=== PATIENT | male | born 1955 | race Two or more races ===

== ENCOUNTER 2017-12-31 10:49 | Outpatient (CLI) | payer OTHER ==
[~2017-12-31 10:49] MED LIST: COZAAR50 MG
== END 2017-12-31 10:55 | disposition home or self-care (01) ==
LOC: RAD 10:49
DX: R07.0 Pain in throat (principal); R51 Headache; J30.89 Other allergic rhinitis

== ENCOUNTER 2018-06-29 03:07 | Emergency (ER) | payer OTHER ==
[~2018-06-29] VITALS: Ht 170.2 cm; Wt 104.3 kg
== END 2018-06-29 12:47 | disposition home or self-care (01) ==
LOC: ER 03:07
DX: N20.1 Calculus of ureter (principal); N20.0 Calculus of kidney; K57.90 Diverticulosis of intestine, part unspecified, without perforation or abscess without bleeding

== ENCOUNTER 2018-07-02 01:15 | Emergency (ER) | payer OTHER ==
[~2018-07-02] VITALS: Ht 170.2 cm; Wt 104.3 kg
== END 2018-07-02 08:26 | disposition home or self-care (01) ==
LOC: ER 01:15
DX: N20.0 Calculus of kidney (principal)

== ENCOUNTER 2018-12-23 10:49 | Outpatient (CLI) | payer OTHER | END 2018-12-23 11:00 | disposition home or self-care (01) | LOC: NUCLEAR 10:49 | DX: G62.9 Polyneuropathy, unspecified (principal); I10 Essential (primary) hypertension; E78.5 Hyperlipidemia, unspecified; I87.2 Venous insufficiency (chronic) (peripheral); I73.9 Peripheral vascular disease, unspecified ==

== ENCOUNTER 2018-12-24 09:59 | Outpatient (CLI) | payer OTHER | END 2018-12-24 10:06 | disposition home or self-care (01) | LOC: NUCLEAR 09:59 | DX: G62.9 Polyneuropathy, unspecified (principal); I10 Essential (primary) hypertension; E78.5 Hyperlipidemia, unspecified; I73.9 Peripheral vascular disease, unspecified ==

== ENCOUNTER → 2019-10-16 10:51 | Outpatient (CLI) | payer OTHER | END | disposition home or self-care (01) | LOC: LAB 10:51 | PROVIDERS: ATTEND Urology | DX: N40.0 Benign prostatic hyperplasia without lower urinary tract symptoms (principal); N20.0 Calculus of kidney ==

== ENCOUNTER 2019-10-18 11:36 | Outpatient (CLI) | payer OTHER | END 2019-10-18 12:08 | disposition home or self-care (01) | LOC: LAB 11:36 | PROVIDERS: ATTEND Urology | DX: N40.0 Benign prostatic hyperplasia without lower urinary tract symptoms (principal); N20.0 Calculus of kidney ==

== ENCOUNTER 2019-10-20 14:06 | Outpatient (CLI) | payer OTHER | END 2019-10-20 14:24 | disposition home or self-care (01) | LOC: LAB 14:06 | PROVIDERS: ATTEND Urology | DX: N40.0 Benign prostatic hyperplasia without lower urinary tract symptoms (principal); N20.0 Calculus of kidney ==

== ENCOUNTER 2019-11-02 07:15 | Inpatient (IN) | payer OTHER ==
[~2019-11-02] VITALS: Ht 170.2 cm; Wt 97.5 kg
[2019-11-02] MEDS ORDERED: VYTORIN 10-401 EACH PO (09:55)
== END 2019-11-12 20:00 | DRG 470 ==
LOC: SURH 11-09 06:09 → O/R 11-09 06:09 → SURH 11-09 07:15
PROVIDERS: ADMIT Orthopaedic Surgery; ATTEND Orthopaedic Surgery
PROC: 0SRD0J9 Replacement of Left Knee Joint with Synthetic Substitute, Cemented, Open Approach (ICD-10-PCS; principal; 2019-11-09 13:30)
DX: M17.12 Unilateral primary osteoarthritis, left knee (principal); I10 Essential (primary) hypertension

== ENCOUNTER 2020-12-07 09:00 | Outpatient (CLI) | payer OTHER ==
[~2020-12-07 09:00] MED LIST changes: +VYTORIN 10-401 EACH PO
== END 2020-12-07 09:33 | disposition home or self-care (01) ==
LOC: TOM 09:00
PROVIDERS: ATTEND General Practice
DX: E04.2 Nontoxic multinodular goiter (principal); Q61.01 Congenital single renal cyst; D72.818 Other decreased white blood cell count; N22 Calculus of urinary tract in diseases classified elsewhere; R63.4 Abnormal weight loss; R13.19 Other dysphagia; M25.562 Pain in left knee; R05 Cough

== ENCOUNTER → 2020-12-07 09:34 | Outpatient (CLI) | payer OTHER | END | disposition home or self-care (01) | LOC: LAB 09:34 | PROVIDERS: ATTEND Radiology Diagnostic Radiology | DX: R13.19 Other dysphagia (principal) ==

== ENCOUNTER 2021-01-20 14:31 | Inpatient (IN) | payer OTHER ==
[~2021-01-20] VITALS: Ht 165.1 cm; Wt 81.6 kg
[2021-01-20] MEDS ORDERED: NEURONTIN300 MG (15:01)
== END 2021-01-31 22:38 | disposition home or self-care (01) | DRG 392 ==
LOC: ER 14:31 → SEC-K 23:54 → MEDI 23:54
PROVIDERS: ADMIT Specialist/Technologist, Other Nephrology; ATTEND Specialist/Technologist, Other Nephrology
PROC: BW21ZZZ Computerized Tomography (CT Scan) of Abdomen and Pelvis (ICD-10-PCS; 2021-01-20)
PROC: 02HV33Z Insertion of Infusion Device into Superior Vena Cava, Percutaneous Approach (ICD-10-PCS; principal; 2021-01-25)
PROC: BW2110Z Computerized Tomography (CT Scan) of Abdomen and Pelvis using Low Osmolar Contrast, Unenhanced and Enhanced (ICD-10-PCS; 2021-01-28)
DX: K57.20 Diverticulitis of large intestine with perforation and abscess without bleeding (principal); N13.2 Hydronephrosis with renal and ureteral calculous obstruction; I10 Essential (primary) hypertension; E78.5 Hyperlipidemia, unspecified; Z96.652 Presence of left artificial knee joint; Z87.442 Personal history of urinary calculi

== ENCOUNTER 2021-05-03 11:41 | Outpatient (CLI) | payer OTHER ==
[~2021-05-03 11:41] MED LIST changes: +NEURONTIN300 MG
== END 2021-05-03 11:42 | disposition home or self-care (01) ==
LOC: TOM 11:41
PROVIDERS: ATTEND Urology
DX: N20.1 Calculus of ureter (principal)

== ENCOUNTER 2022-05-28 16:12 | Emergency (ER) | payer OTHER ==
[~2022-05-28] VITALS: Ht 167.6 cm; Wt 89.8 kg
[2022-05-28] MEDS ORDERED: KETO10TA2 PO (19:53)
[2022-05-28] MEDS ORDERED: TAMS0.4C PO (19:53)
[2022-05-28] MEDS ORDERED: CIPRO500 MG PO (19:53)
== END 2022-05-28 22:13 | disposition home or self-care (01) ==
LOC: ER 16:12
DX: N20.0 Calculus of kidney (principal); Z88.0 Allergy status to penicillin; I10 Essential (primary) hypertension